=== PATIENT | female | born 1955 | race Caucasian/White ===

== ENCOUNTER → 2018-02-14 | Outpatient (CLI) | payer MEDICAID | LOC: FIMAGING 10:54 | PROVIDERS: ATTEND Orthopaedic Surgery Hand Surgery | DX: M75.111 Incomplete rotator cuff tear or rupture of right shoulder, not specified as traumatic (principal) ==

== ENCOUNTER 2018-08-10 12:48 | Day surgery (SDC) | payer MEDICAID ==
[2018-08-10] MEDS ORDERED: ceFAZolin 2 GM/DEXTROSE 100 ML IV ONE (13:00)
[2018-08-10] MEDS ORDERED: LR 1,000 ML IV ONE (13:01)
[2018-08-10] MEDS ORDERED: BUPIVACAINE/EPI 0.5% 30 ML SDV ONE (13:08)
[2018-08-10] MEDS ORDERED: EPINEPHrine 1 MG/ML INJ ONE (13:08)
--- NOTE | 2018-08-10 15:03 | PDHPUP ---
History & Physical Update H&P update statement: This history and physical update is based on an assessment of the patient which was completed after admission or registration (within 24 hours), but prior to the surgery/procedure. H&P update: H&P reviewed & patient examined, no change in patient's condition since H&P completed
[2018-08-10] MEDS ORDERED: MIDAZOLAM 2 MG/2 ML VIAL IVP ONE (15:13)
--- NOTE | 2018-08-10 15:13 | PDANEPAE ---
ANE History of Present Illness torn rotator cuff here for arthroscopy with repair ANE Past Medical History - Cardiovascular History Hx Hypertension: No Hx Arrhythmias: No Hx Chest Pain: No Hx Coronary Artery / Peripheral Vascular Disease: No Hx CHF / Valvular Disease: No Hx Palpitations: Yes Cardiovascular History Comment: "every once in awhile it feels like heart it fluttering, not very often though" had echo several years ago with no findings - Pulmonary History Hx COPD: No Hx Asthma/Reactive Airway Disease: No Hx Recent Upper Respiratory Infection: No Hx Oxygen in Use at Home: No Hx Sleep Apnea: No Sleep Apnea Screening Result - Last Documented: Negative - Neurologic History Hx Cerebrovascular Accident: No Hx Seizures: No Hx Dementia: No - Endocrine History Hx Diabetes: No - Renal History Hx Renal Disorders: No - Liver History Hx Hepatic Disorders: No - Neurological & Psychiatric Hx Hx Neurological and Psychiatric Disorders: No - Cancer History Hx Cancer: No - Congenital Disorder History Hx Congenital Disorders: No - GI History Hx Gastrointestinal Disorders: Yes Gastrointestinal History Comment: chronic constipation most of her life- better now - Other Health History Other Health History: wears glasses - Chronic Pain History Chronic Pain: No - Surgical History Prior Surgeries: oral surgery ANE Review of Systems Review of Systems: - Exercise capacity METS (RN): 5 METS ANE Patient History - Allergies Allergies/Adverse Reactions: No Known Allergies Allergy (Verified 07/22/18 12:39) - Home Medications Home medications: home medication list seen and reviewed Home Medications: NK [No Known Home Meds] 07/22/18 [Last Taken Unknown] - NPO status NPO Status: no food or drink >8 hours NPO Since - Liquids (Date): 08/10/18 NPO Since - Liquids (Time): 11:00 NPO Since - Solids (Date): 08/10/18 NPO Since - Solids (Time): 05:00 - Anes Hx Anes Hx: no prior problems - Smoking Hx Smoking Status: Never smoked - Alcohol Use Alcohol Use: Rarely - Family Anes Hx Family Anes Hx: none Family Hx Anesthesia Complications: none ANE Labs/Vital Signs - Vital Signs Blood Pressure: 108/73 Heart Rate: 56 Respiratory Rate: 14 O2 Sat (%): 95 Height: 170.18 cm Weight: 65.317 kg ANE Physical Exam - Airway Neck exam: FROM Mallampati Score: Class 2 Mouth exam: normal dental/mouth exam - Pulmonary Pulmonary: no respiratory distress, clear to auscultation - Cardiovascular Cardiovascular: regular rate and rhythym, no murmur, rub, or gallop - ASA Status ASA Status: II ANE Anesthesia Plan Anesthesia Plan: GA w LMA [facility] Anesthesia: single shot NB, interscalene BP NB
[2018-08-10] MEDS ORDERED: fentaNYL 100 MCG/2 ML INJ ONE (15:22)
[2018-08-10] MEDS ORDERED: PROPOFOL 200 MG/20 ML VIAL ONE (15:22)
[2018-08-10] MEDS ORDERED: MIDAZOLAM 2 MG/2 ML VIAL ONE (15:22)
[2018-08-10] MEDS ORDERED: PHENYLEPHRINE HCL 100 MCG/ML SYR ONE ×3 (16:06→17:15)
[2018-08-10] MEDS ORDERED: ACETAMINOPHEN 500 MG TAB PO PRN (18:07)
[2018-08-10] MEDS ORDERED: ONDANSETRON 4 MG/2 ML VIAL IVP PRN (18:07)
[2018-08-10] MEDS ORDERED: HYDROCODONE/APAP 5/325 TAB PO PRN (18:07)
[2018-08-10] MEDS ORDERED: oxyCODONE IR 5 MG TAB PO PRN (18:07)
[2018-08-10] MEDS ORDERED: NALOXONE HCL 0.4 MG/ML INJ IVP PRN (18:07)
[2018-08-10] MEDS ORDERED: fentaNYL 100 MCG/2 ML INJ IVP PRN (18:07)
--- NOTE | 2018-08-10 18:08 | POSTANESTH ---
Post Anesthetic Evaluation Cardiovascular Status: Normal, Stable, Similar to Pre-Op Cond Respiratory Status: Normal, Stable, Similar to Pre-op Cond. Level of Consciousness/Mental Status: Can Participate in Eval, Alert and Oriented Pain Control: Adequate, Prn Tx Ordered Nausea/Vomiting Control: Adequate, Prn Tx Ordered Complications Possibly Related to Anesthesia: None Noted
[2018-08-10] MEDS ORDERED: ONDANSETRON 4 MG/2 ML VIAL ONE (18:32)
[2018-08-10 18:58] VITALS: BP 106/64
--- NOTE | 2018-08-11 06:47 | GOP ---
[f rep st] OPERATIVE REPORT DATE OF OPERATION: 08/10/2018 SURGEON: Jeff Ly MD ASSIST: Hung Biggs was the data analysis assistant for this surgery. A data analysis assistant was medically necessary for the safe and successful completion of this surgery. ANESTHESIA: General and block. PREOPERATIVE DIAGNOSIS: 1. Right shoulder rotator cuff tear, partial to complete (supraspinatus). 2. Right shoulder biceps tendinitis. 3. Right shoulder synovitis and degenerative labral tear. 4. Right shoulder impingement syndrome. POSTOPERATIVE DIAGNOSIS: 1. Right shoulder complete rotator cuff tear (supraspinatus). 2. Right shoulder biceps tendinitis and biceps tendon partial tear, greater than 50%. 3. Right shoulder synovitis and degenerative labral tearing. 4. Right shoulder impingement syndrome. PROCEDURE PERFORMED: 1. Right shoulder arthroscopy with extensive debridement of synovium, biceps anchor, and long head of biceps, degenerative labrum. 2. Right shoulder subacromial decompression and partial acromioplasty. 3. Right shoulder arthroscopic rotator cuff repair. 4. Right shoulder open subpectoral biceps tenodesis. FINDINGS: DESCRIPTION OF PROCEDURE: The patient was seen in the preoperative holding area. She was given the opportunity to ask any questions, all questions were answered. Consent was signed. Surgical site was marked. A block was performed in the preoperative area, and she was transferred to operative suite. Care was taken to pad all bony prominences after transfer from the [facility] to the operating room table. She was very carefully placed in the beach chair position. Care was taken to ensure that all bony prominences were padded. She was well secured, her head was well secured, her eyes were well padded. Time- out was called, including surgical and anesthesia teams, confirming surgical site and procedure to be performed. Two grams of Ancef were given prior to incision. The right upper extremity was prepped and draped in usual sterile fashion for shoulder arthroscopy. I first made a standard posterior portal for shoulder arthroscopy, then placed a rotator interval anterior portal under direct visualization in the standard fashion. After placing this portal I began diagnostic arthroscopy. The glenoid and humeral head cartilage was intact. She had some mild degenerative fraying of the anterior labrum. There was marked fraying of the superior labrum with what appeared to be a partial biceps tendon tear at the anchor, greater than 50%. There was extensive synovitis anteriorly. Working over at the supraspinatus, there was some denuded biceps anchor with visible bone. This appeared to likely be very much a new complete tear. I then began the debridement portion of procedure. I used the shaver to debride part of the degenerative anterior labrum and degenerated biceps. I tenotomized the biceps, and I debrided the damaged superior labrum. I debrided the inflamed synovium and part of the rotator cuff footprint. I placed the needle through the rotator cuff tear to arina it, and placed a PDS suture to arina it. I placed the arthroscope in the subacromial position and performed bursectomy with the arthroscopic wand. This was when I visualized my needle and then found a complete tear. This was complete at only one portion several mm wide; however, it was complete, more so than noted on the MRI. I completed the tear with the arthroscopic wand. I then used the bur to prep the tuberosity down to bleeding bone. I then placed FiberTape through the labrum, and then place Arthrex FiberTape through the rotator cuff tear in a horizontal mattress fashion. Then, I placed an anchor and tensioned the repair , and then placed anchors snugly with good compression, and a nice repair. I used the bur to perform a partial acromioplasty of the anterolateral corner. Once this was done, I then turned my attention to the subpectoral biceps tenodesis. I made a small, about 2 cm, incision at the border of the pec and the biceps, carefully dissecting through the skin to the level of the biceps. I identified the short head, then I identified the long head. I was able to pull the long head out with a right angle. Then I prepped the groove with the Bovie, and then the rasp, then I placed a FiberTak anchor, double loaded. I tied one of the sutures through the biceps with a running suture. The other suture I simply tied over the top of the biceps, and the remaining biceps was cut short. The incision was irrigated. The arthroscopic portals were closed with a 4-0 nylon, and the axillary incision was closed with interrupted 3-0 Monocryl and 4-0 Monocryl in subcuticular fashion. Sterile dressing was applied. She tolerated the procedure well, was taken to the PACU condition stable. Estimated blood loss was 5 mL. IMPLANTS USED: Arthrex SwiveLock for the rotator cuff and FiberTak for the biceps. INDICATIONS FOR PROCEDURE: The patient is a 62-year-old female who has seen me in clinic with right shoulder pain. She has tried and failed conservative treatment including injections and physical therapy. I ordered an MRI which showed near complete supraspinatus tendon tear and labral degeneration, biceps tendinosis. At the time she had failed conservative treatment, and opted for shoulder arthroscopy with debridement, subacromial decompression, rotator cuff repair, and subpectoral biceps tenodesis. I felt that her biceps was one of her pain generators by exam. Notably, she sought a 2nd opinion, who made the same suggestion as far as treatment plan as I did, apart from adding a Shravan procedure. I discussed with her that I did not feel that her AC joint was symptomatic, she did not have any pain over AC joint on any visit, and we decided that a partial clavicle excision would not be advised. After our discussion, she wished to proceed with surgery. POSTOPERATIVE CONDITION: Stable. POSTOPERATIVE PLAN: The patient will follow up with me in 10 to 14 days. We will begin on therapy protocol. /[id number]/MODL MTDD
== END 2018-08-10 19:16 | disposition home or self-care (01) ==
LOC: FSGY 12:48
PROVIDERS: ATTEND Orthopaedic Surgery Hand Surgery
DX: M75.121 Complete rotator cuff tear or rupture of right shoulder, not specified as traumatic (principal); M75.21 Bicipital tendinitis, right shoulder; M75.81 Other shoulder lesions, right shoulder; M75.41 Impingement syndrome of right shoulder
CPT/HCPCS: C1713; J0171; J0690; J2250; J2370; J2405; J2704; J3010